=== PATIENT | male | born 1995 | race African-American/Black ===

== ENCOUNTER 2016-09-05 12:10 | Emergency (ER) | payer OTHER ==
[2016-09-05 12:27] VITALS: BP 152/86
[2016-09-05 15:23] LABS: Urine Bacteria Absent (Absent); Urine Bilirubin Negative (Negative); Urine Glucose Negative (Negative); Urine Nitrite Negative (Negative)
[2016-09-05] MEDS ORDERED: Ciprofloxacin TAB* 500 MG PO ONE (15:35)
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
--- NOTE | 2016-09-06 15:50 | PN ---
Progress Note - Progress Note Date of Service: 09/04/16 Note: Positive for GC/Chlamydia Sent 2g Azithromycin to pharmacy Called patient to make aware He agrees to picker tender at rx today
== END 2016-09-05 16:02 | disposition home or self-care (01) ==
LOC: ED 12:10
DX: N39.0 Urinary tract infection, site not specified (principal); R30.0 Dysuria
CPT/HCPCS: 81003; 81015; 87086; 87491; 87591; 99282; A9270-GY